=== PATIENT | female | born 1960 | race African-American/Black ===

== ENCOUNTER 2017-07-07 11:56 | Emergency (ER) | payer SELFPAY ==
[~2017-07-07] VITALS: Ht 160 cm; Wt 122.0 kg
[~2017-07-07 11:56] MED LIST: BACTRIM DS1 TAB OR; FEOSOL200 MG OR; IRON CHEWS PO; LORTAB 7.57.5 MG OR; MEDDOSEPAK OR; MEGACE40 MG PO; NAPROSYN500 MG PO; NO HOME MEDS; PREMARIN1.25 MG PO; VISTARIL25 MG OR; VISTARIL50 MG OR
[2017-07-07] MEDS ORDERED: ULTRAM50 M1 PO (12:45)
[2017-07-07 12:49] VITALS: BP 157/83
== END 2017-07-07 12:55 | disposition home or self-care (01) | DRG 605 ==
LOC: ED 11:56
DX: S80.12XA Contusion of left lower leg, initial encounter (principal); R22.42 Localized swelling, mass and lump, left lower limb; W10.9XXA Fall (on) (from) unspecified stairs and steps, initial encounter; Y92.009 Unspecified place in unspecified non-institutional (private) residence as the place of occurrence of the external cause

== ENCOUNTER 2017-07-18 19:11 | Emergency (ER) | payer SELFPAY ==
[~2017-07-18] VITALS: Ht 160 cm; Wt 126.8 kg
[~2017-07-18 19:11] MED LIST changes: +ULTRAM50 M1 PO
[2017-07-18 21:10] VITALS: BP 176/86
== END 2017-07-18 21:10 | disposition home or self-care (01) | DRG 605 ==
LOC: ED 19:11
DX: S80.12XA Contusion of left lower leg, initial encounter (principal); S80.812A Abrasion, left lower leg, initial encounter; W17.89XA Other fall from one level to another, initial encounter; Y93.89 Activity, other specified; Y92.008 Other place in unspecified non-institutional (private) residence as the place of occurrence of the external cause

== ENCOUNTER 2021-10-24 10:44 | Emergency (ER) | payer SELFPAY ==
[~2021-10-24] VITALS: Ht 160 cm; Wt 100.0 kg
[2021-10-24] MEDS ORDERED: VIBRAMYCIN100 M2 PO (12:33)
[2021-10-24 12:46] VITALS: BP 120/84
== END 2021-10-24 13:16 | disposition home or self-care (01) | DRG 603 ==
LOC: ED 10:44
DX: L02.211 Cutaneous abscess of abdominal wall (principal); L03.311 Cellulitis of abdominal wall

== ENCOUNTER 2021-10-27 16:39 | Emergency (ER) | payer SELFPAY ==
[~2021-10-27] VITALS: Ht 160 cm; Wt 122.7 kg
[2021-10-27] VITALS (9 sets, daily range): BP systolic 105–129; BP diastolic 57–78
[~2021-10-27 16:39] MED LIST changes: +VIBRAMYCIN100 M2 PO
[2021-10-27 17:18] LABS: HEMOGLOBIN 12.2 g/dl (12.0-16.0); IMMATURE GRANULOCYTES 0.4 % (0.0-5.0); MEAN CELL VOLUME 83.5 fL CALC (80.0-100.0); MEAN CORPUSCULAR HGB 26.1 pG CALC (26.0-32.0); MEAN CORPUSCULAR HGB CONC 31.3 g/dL CAL (32.0-36.0); NEUT# 15.58 thou/uL (2.00-7.15); RED BLOOD COUNT 4.67 mill/uL (4.20-5.60); RED CELL DISTRI WIDTH 13.1 % (11.5-15.5)
[2021-10-27 17:39] LABS: ALBUMIN 3.5 g/dL (3.2-5.0); ALKALINE PHOSPHATASE 95 u/l (38-126); ANION GAP 14 (6-22 (CALC)); BUN 9 mg/dL (8-23); BUN/CREATININE RATIO 9 (12-20 (CALC)); CARBON DIOXIDE 27 mmol/l (22-30); CHLORIDE 99 mmol/l (95-108); GFR FOR AFR.AMER. > 60 ML/MIN (>=60 (CALC)); GFR OTHER RACES 56 ML/MIN (>=60 (CALC)); LIPASE 78 u/l (23-300); POTASSIUM 3.3 mmol/l (3.5-5.1); SODIUM 137 mmol/l (137-146); TOTAL PROTEIN 7.1 g/dL (6.3-8.2)
[2021-10-27 17:41] LABS: BILIRUBIN, TOTAL 2.3 mg/dL (0.0-1.4); SGOT/AST 65 u/l (9-36)
[2021-10-27 19:47] LABS: URINE BILIRUBIN - DIPSTICK SMALL (NEGATIVE); URINE BLOOD DIPSTICK SMALL (NEGATIVE); URINE COLOR YELLOW; URINE GLUCOSE - DIPSTICK NEGATIVE (NEGATIVE); URINE KETONE NEGATIVE (NEGATIVE); URINE LEUK ESTERASE LARGE (NEGATIVE); URINE NITRITE - DIPSTICK NEGATIVE (Negative); URINE PROTEIN - DIPSTICK 30 mg/dL (NEG-TRACE); URINE SPECIFIC GRAVITY 1.015
[2021-10-27 19:55] LABS: URINE BACTERIA FEW hpf; URINE SQUAMOUS EPITHELIAL CELL FEW EPI/hpf (0-FEW); URINE WBC 50-100 WBC/hpf (0-5)
[2021-10-27] MEDS ORDERED: BACTRIM DS1 TAB PO (21:23)
== END 2021-10-27 21:35 | disposition home or self-care (01) | DRG 603 ==
LOC: ED 16:39
PROVIDERS: Family Medicine
PROC: 0H97XZZ Drainage of Abdomen Skin, External Approach (ICD-10-PCS; principal; 2021-10-27)
DX: L02.211 Cutaneous abscess of abdominal wall (principal); B96.89 Other specified bacterial agents as the cause of diseases classified elsewhere
CPT/HCPCS: Q9967

== ENCOUNTER 2021-10-29 11:51 | Emergency (ER) | payer SELFPAY ==
[~2021-10-29] VITALS: Ht 160 cm; Wt 122.7 kg
[~2021-10-29 11:51] MED LIST changes: +BACTRIM DS1 TAB PO
[2021-10-29 11:57] VITALS: BP 132/79
[2021-10-29 12:16] VITALS: BP 126/72
[2021-10-29 12:43] VITALS: BP 126/72
== END 2021-10-29 12:40 | disposition home or self-care (01) | DRG 951 ==
LOC: ED 11:51
DX: Z48.01 Encounter for change or removal of surgical wound dressing (principal)